=== PATIENT | female | born 1960 | race Two or more races ===

== ENCOUNTER 2021-06-02 13:21 | Outpatient (CLI) | payer OTHER ==
[~2021-06-02 13:21] MED LIST: MEDROL4 MG PO; SKELAXIN800 MG PO
== END 2021-06-02 13:40 | disposition home or self-care (01) ==
LOC: LAB 13:21
PROVIDERS: ATTEND Physical Medicine & Rehabilitation
DX: M06.9 Rheumatoid arthritis, unspecified (principal)

== ENCOUNTER 2022-06-09 12:11 | Outpatient (CLI) | payer OTHER | END 2022-06-09 12:21 | disposition home or self-care (01) | LOC: RAD 12:11 | PROVIDERS: ATTEND Physical Medicine & Rehabilitation | DX: M25.561 Pain in right knee (principal); M25.562 Pain in left knee; M54.59 Other low back pain; M54.2 Cervicalgia ==